=== PATIENT | female | born 1965 | race Caucasian/White ===

== ENCOUNTER 2018-05-20 16:04 | Outpatient (CLI) | payer OTHER, SELFPAY ==
[2018-05-20 17:36] LABS: TSH 2.97 uIU/mL (0.358-3.74)
== END 2018-05-20 16:24 ==
PROVIDERS: PCP Family Medicine; Visit Provider Family Medicine
DX: E03.9 Hypothyroidism, unspecified (principal)
CPT/HCPCS: 36415; 84443

== ENCOUNTER 2018-10-21 09:48 | Outpatient (CLI) | payer OTHER, SELFPAY ==
--- NOTE | 2018-10-21 09:39 | DI.RAD_ITS ---
SYMPTOM/DIAGNOSIS: RT KNEE PAIN RIGHT KNEE: Three views. No priors. Small periarticular osteophytes are seen in the medial and lateral femoral tibial joint space. The joint spaces are otherwise well maintained. The bones are intact and normally mineralized. The soft tissues are unremarkable. IMPRESSION: Mild degenerative changes of the right knee.
== END 2018-10-21 10:08 ==
PROVIDERS: PCP Family Medicine; Visit Provider Student in an Organized Health Care Education/Training Program
DX: M25.561 Pain in right knee (principal); M17.11 Unilateral primary osteoarthritis, right knee
CPT/HCPCS: 73562

== ENCOUNTER 2018-11-11 10:18 | Outpatient (CLI) | payer OTHER, SELFPAY ==
[2018-11-11 13:08] LABS: Cholesterol 212 mg/dL (50-200); HDL Cholesterol 69 mg/dL (40-60); LDL CHOLESTEROL 126 mg/dL (<100); TSH 3.19 uIU/mL (0.358-3.74); Triglyceride 96 mg/dL (30-150)
== END 2018-11-11 10:38 ==
PROVIDERS: PCP Family Medicine; Visit Provider Family Medicine
DX: E03.9 Hypothyroidism, unspecified (principal); Z13.220 Encounter for screening for lipoid disorders
CPT/HCPCS: 36415; 80061; 83721; 84443

== ENCOUNTER 2018-11-13 02:00 | Outpatient (CLI) | payer OTHER, SELFPAY ==
--- NOTE | 2018-11-13 08:48 | DI.RAD_ITS ---
SYMPTOM/DIAGNOSIS: FOOD GETTING STUCK AFTER SWALLOWING, DYSPHAGIA, R13.10 BARIUM SWALLOW: Fluoroscopy Time: 46 seconds A PA and lateral chest and soft tissue lateral neck are unremarkable. The patient swallowed barium without difficulty. The hira and hypopharynx are intact. The bolus of barium is projected normally from the pharynx into the esophagus. There is a small axial hiatus hernia beneath a non obstructing lower esophageal ring. Gastroesophageal reflux was not elicited at the time of this examination. There is no evidence of a stricture or mass. SUMMARY: A small axial hiatus hernia is noted beneath a non obstructing lower esophageal ring. The examination is otherwise unremarkable.
[2018-11-13] MEDS: Barium Sulfate 60% W/V 355 ML BTL PO ×2 (10:00)
== END 2018-11-13 02:20 ==
PROVIDERS: PCP Family Medicine; Visit Provider Family Medicine
DX: R13.10 Dysphagia, unspecified (principal); K44.9 Diaphragmatic hernia without obstruction or gangrene; K22.2 Esophageal obstruction
CPT/HCPCS: 74220

== ENCOUNTER 2018-11-26 00:52 | Outpatient (CLI) | payer OTHER, SELFPAY ==
--- NOTE | 2018-11-26 15:30 | DI.MAMMO_ITS ---
SYMPTOM/DIAGNOSIS: SCREENING, Z12.31 MAMMOGRAMS: Mammograms were interpreted according to the usual protocol including computer analysis with CAD system, tomosynthesis and C view imaging. The breasts are of moderate density with fairly symmetrical distribution of fibroglandular tissue. No dominant mass or clumped microcalcification is identified in either breast. The current examination is compared with previous examinations including 02/2016 and there has been no gross interval change in appearance in comparison with the previous studies. CONCLUSION: No specific evidence of malignancy at this time. Routine screening examinations are suggested at yearly intervals in this age group according to the ACS/ACR guidelines. Category 1. Breast density, Category B. MQSA ASSESSMENT OF FINDINGS: Negative. Category 1. Patient will receive a letter notifying them of these results. BI-RADS category B. There are scattered areas of fibroglandular density.
== END 2018-11-26 01:12 ==
PROVIDERS: PCP Family Medicine; Visit Provider Family Medicine
DX: Z12.31 Encounter for screening mammogram for malignant neoplasm of breast (principal)
CPT/HCPCS: 77063; 77067

== ENCOUNTER 2019-01-20 02:10 | Outpatient (CLI) | payer OTHER, SELFPAY ==
--- NOTE | 2019-01-20 16:03 | DI.MRI_ITS ---
SYMPTOM/DIAGNOSIS: RT KNEE PAIN, TENDERNESS OVER LAT JOINT LINE, BICEPS FEMORIS, S76.311D, STRAIN RIGHT KNEE MRI: Comparison is made with plain films dated 10/21/18. Fat suppressed T 2 axial, proton density and fat suppressed T 2 coronal and sagittal and proton density oblique sagittal sequences were performed. There is a moderate sized joint effusion. There is a small Davis's cyst. There is some fluid posterior to the posterior cruciate ligament between the posterior capsule which could represent synovial cyst or ganglion. The cruciate and collateral ligaments and extensor mechanism appear intact. There is abnormal linear signal in the body and posterior horn of the lateral meniscus. The medial meniscus appears intact. There is spurring from the femoral condyles and tibial plateaus, greater laterally. No focal cartilage defects are seen. IMPRESSION: Horizontal tear of the posterior horn and body of the lateral meniscus.
== END 2019-01-20 02:30 ==
PROVIDERS: PCP Family Medicine; Visit Provider Physician Assistant
DX: S76.311D Strain of muscle, fascia and tendon of the posterior muscle group at thigh level, right thigh, subsequent encounter (principal); M25.561 Pain in right knee; S83.281A Other tear of lateral meniscus, current injury, right knee, initial encounter
CPT/HCPCS: 73721

== ENCOUNTER 2019-06-03 08:47 | Outpatient (CLI) | payer OTHER, SELFPAY ==
--- NOTE | 2019-06-03 07:56 | HPE_ITS ---
Assessment and Plan Assessment and plan (1) Tear of lateral meniscus of right knee: Status: Acute Assessment and plan: Plan: Educated patient on surgery covering surgical technique, recovery process, benefits and risks including but not limited to ris k of infection, blood clot, damage to soft tissue/blood vessels/nerves in detail. After discussion patient gives verbal understanding of risks and elects to proceed with scheduling surgery. Patient had opportunity to have questions answered to their satisfaction. They will contact office if issues arise. Patient will continue to be scheduled for right knee arthroscopic surgery with partial lateral meniscectomy with Dr. Rodgers. Qualifiers: Encounter type: subsequent encounter Meniscus tear of knee type: complex Tear current or old: current Qualified Code(s): S83.271D - Complex tear of lateral meniscus, current injury, right knee, subsequent encounter History of Present Illness Narrative: Ms. Morton is a 54-year-old female who presents to clinic for scheduled preoperative visit for right knee arthroscopy with partial lateral menisectomy. Patient has been seen in clinic numerous times for right lateral based lower extremity pain since it began last August. Describes pain on the lateral aspect of her right distal thigh that extends to the posterior aspect of her knee along the lateral aspect of the calf extending to the dorsum of the foot. She describes pain as constant but aggravated with all weightbearing activity, ascending/descending hills and driving. She has tried physical therapy, Advil as well as an intraarticular injection but continues to have pain. Based on her symptoms she underwent an MRI which revealed a lateral meniscus tear. Reports a numbing pain sensation along the lateral aspect of her knee down to the foot recently when having to hold the car brake down for an extended amount of time. States that the symptoms of radiated pain/numbness also fully resolves for a few days with her intraarticular injection. States the knee also swells significantly by the end of the day. Denies any recent injuries or trauma. Due to her continued symptoms she was offered surgical intervention and elected to proceed. Pertinent Surgical Information Denies past medical history of: Hypertension, stroke, cardiac issues, angina, asthma, COPD, sleep apnea, renal issues, liver issues, hepatitis, gastrointestinal ulcers, hyperlipidemia, bleeding disorders, seizures, migraines, diabetes, autoimmune disorders Reports a little difficulty breathing when she was waking up from anesthesia following her first hysterectomy surgery at [facility] in 2008. Denies any additional issues with surgeries following at [facility] and at [facility]. Denies prior complications from surgery. Review of Systems Constitutional Constitutional: Denies fever(s), Denies frequent falls and Denies headache(s) Eyes Eyes: Denies change in vision ENT Ears, Nose, Mouth, and Throat: Denies dizziness, Denies ear discharge, Denies headache(s), Denies epistaxis, Denies nasal discharge and Denies sore throat Cardiovascular Cardiovascular: Denies chest pain, Denies rapid heart rate, Denies irregular heart rhythm, Denies palpitations, Denies dyspnea, Denies dyspnea on exertion, Denies orthopnea, Denies paroxysmal nocturnal dyspnea and Denies slow heart rate Respiratory Respiratory: Denies cough, Denies dyspnea, Denies dyspnea on exertion and Denies wheezing Gastrointestinal Gastrointestinal: Denies abdominal pain, Denies melena, Denies hematochezia, Denies constipation, Denies diarrhea, Denies nausea and Denies vomiting Genitourinary Genitourinary: Denies hematuria, Denies dysuria and Denies urinary urgency Musculoskeletal Musculoskeletal: Reports as per HPI, Reports numbness and Denies tingling Neurologic Neurologic: Denies dizziness, Denies frequent falls, Denies headache(s), Reports numbness and Denies tingling Psychiatric Psychiatric: Reports anxiety and Reports depression Endocrine Endocrine: Denies palpitations Allergic/Immunologic Allergic/Immunologic: Denies wheezing [facility] Medical History (Updated 06/03/19 @ 14:14 by Eda Dukes) Anxiety Depression Family history of anesthesia complication (Acute) Pt states mother had to be brought back GERD (gastroesophageal reflux disease) (Chronic) History of anesthesia problem (Acute) Pt states difficulty breathing, N/V Hypothyroid Tendinitis involving left hip abductors (Chronic 02/14/16) Trochanteric bursitis of both hips (Chronic 02/14/16) Surgical History Cholecystectomy (~07/1998) Colonoscopy - IV Sedation (04/28/16) History of pubovaginal sling (Acute) [facility] Hysterectomy, Laproscopic prolapsed uterus Family History Mother Essential hypertension Hyperlipidemia Hyperthyroidism Pacemaker Father Inclusion body myositis Essential hypertension Hyperlipidemia Machuca's syndrome Brother No problems noted. Grandfather , accidental No problems noted. Grandfather Essential hypertension Heart disease Hyperlipidemia Stroke Grandmother , accidental No problems noted. 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 - [employer] Do you feel safe at home: Yes Do you feel safe in your relationship?: Yes Meds Home Medications and Allergies Home Medications Medication Instructions Recorded Confirmed Type calcium carbonate-vitamin D3 1 ea PO BID 11/27/12 06/03/19 History [Caltrate with Vitamin D3] venlafaxine 37.5 mg 37.5 mg PO DAILY #90 tab-cap 06/19/18 06/03/19 Rx capsule,extended release 24 hr levothyroxine 112 mcg tablet 112 mcg PO DAILY #90 tab-cap 08/06/18 06/03/19 Rx ranitidine HCl 150 mg tablet 150 mg PO DAILY PRN 11/11/18 06/03/19 History nystatin 100,000 unit/gram topical 1 applic TP BID PRN #30 gm 02/19/19 06/03/19 Rx cream ibuprofen [Advil] 400 mg PO DAILY 06/03/19 06/03/19 History Allergies Allergy/AdvReac Type Severity Reaction Status Date / Time No Known Allergies Allergy Verified 06/03/19 09:07 Exam Const General: cooperative and no acute distress [facility] Head: normal to inspection, normocephalic and atraumatic Ears: external ears normal General nose exam: external nose normal and no nasal discharge Face and sinus: face symmetric Mouth: oral mucosae normal, lip normal, tongue normal and moist mucous membranes Teeth and gingiva: dentition normal Throat: posterior oropharynx normal Eyes General: appearance normal, both eyes and all related structures Pupils: PERRL EOM: EOM intact bilaterally Neck Neck: trachea midline Carotids: normal carotid upstroke Lymphatic: no lymphadenopathy noted Resp Effort & Inspection: normal respiratory effort and able to speak in complete sentences Auscultation: clear to auscultation bilaterally, no rales, no rhonchi and no wheezes Cardio Heart Sounds: S1 normal, S2 normal and no murmurs Pulses: radial pulses present bilaterally GI Palpation: soft, no hepatosplenomegaly and nontender Auscultation: normal bowel sounds Skin General skin exam: no rashes or lesions noted
== END 2019-06-03 09:07 ==
PROVIDERS: PCP Family Medicine; Visit Provider Student in an Organized Health Care Education/Training Program
DX: S83.281D Other tear of lateral meniscus, current injury, right knee, subsequent encounter (principal); Z01.818 Encounter for other preprocedural examination
CPT/HCPCS: NC

== ENCOUNTER 2019-06-10 06:01 | Day surgery (SDC) | payer OTHER, SELFPAY ==
[2019-06-10] VITALS (7 sets, daily range): BP systolic 114–140; BP diastolic 67–96; PULSE 49–63; RESP 16–19; TEMP 36.1–36.7; O2SAT 97–100
[2019-06-10] MEDS: Lactated Ringers 1,000 ML 80 ML IV (06:43)
--- NOTE | 2019-06-10 07:09 | W.PM.DSUDISC ---
Discharge Plan Disposition Patient Disposition: HOME Condition: Good Discharge Details Reason For Visit: R lateral meniscus tear Attending Provider: Nick Rodgers Primary Care Provider: Trish Stevens Home Meds and New Rx's Prescriptions: New acetaminophen 500 mg tablet 1,000 mg PO Q8H PRN (Reason: pain) Qty: 60 RF: 3 ibuprofen 600 mg tablet 600 mg PO TID PRNQty: 90 RF: 3 oxycodone 5 mg tablet 5 mg PO Q6H PRN PRNQty: 10 RF: 0 Continued ranitidine HCl [Heartburn Relief (ranitidine)] 150 mg tablet 150 mg PO DAILY PRNRF: 0 nystatin 100,000 unit/gram cream 1 applic TP BID PRN (Reason: skin rash) Qty: 30 RF: 3 calcium carbonate-vitamin D3 [Caltrate with Vitamin D3] 1 EACH tablet 1 ea PO BID RF: 0 venlafaxine 37.5 mg capsule,extended release 24hr 37.5 mg PO DAILY Qty: 90 RF: 4 levothyroxine 112 mcg tablet 112 mcg PO DAILY Qty: 90 RF: 3 Discontinued ibuprofen [Advil] 200 mg Tablet 400 mg PO DAILY RF: 0 Discharge Instructions Stand Alone Forms: [facility] Knee Arthroscopy Referrals: Nick Rodgers MD [ [facility] STAFF PHYSICIAN] - Equipment/Supplies: Partial Weight Bearing Crutches Activity:: Elevate Remove Dressings/Wound Care:: 72 hours Shower/Bathe:: 72 hours Diet:: As Tolerated Discharge Orders Discharge Orders: Discharge Order (Routine); Ordered 06/10/19 Ordered By: Nick Rodgers DS: Diagnosis Discharge Diagnosis (1) Tear of lateral meniscus of right knee: Status: Acute
[2019-06-10] MEDS: ceFAZolin 2 GM/50 ML BAG IVPB (07:23)
[2019-06-10] MEDS: Bupivacaine 0.5% Pres-Free 30 ML VIAL (07:45)
[2019-06-10] MEDS: EPINEPHrine 1 MG/ML AMP pres-free (07:53)
[2019-06-10] MEDS: fentaNYL 100 MCG/2 ML VIAL IVP ×2 (08:30→08:45)
--- NOTE | 2019-06-10 08:48 | ROE_ITS ---
Date of service: 06/10/19 Time of Service: 08:48 Operative Note Operative Note DATE OF PROCEDURE: 06/10/19 PRE-OP DIAGNOSIS: Left Knee Lateral Meniscus Tear POST-OP DIAGNOSIS: other (Left Knee Lateral Meniscus Tear involving posterior root, lateral chondromalacia) PROCEDURE: Left knee arthroscopic partial lateral meniscectomy SURGEON: Nick Rodgers ANESTHESIA: GETA ESTIMATED BLOOD LOSS: 0 PATHOLOGY: none sent COMPLICATIONS: None Patient was transported to: PACU Patient's condition: stable Indications: I have seen Erum in clinic for symptoms of a meniscus tear. This was confirmed based on MRI and exam findings. Nonoperative measures were exhausted but disability and pain persisted. I discussed knee arthroscopy with meniscal intervention with the patient. I reviewed the risks of the procedure to include, but not limited to, bleeding, infection, pain, stiffness, damage to nerves or vessels, recurrence, blood clot. Despite these risks, the patient el ected to proceed. 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 The consent was reviewed with the patient and signed. The history and physical was updated. All questions were answered. Erum was taken back to the operating room. The patient was placed into the supine position on the operating room table. A nonsterile tourniquet was placed high onto the leg but not used. All bony prominences were well padded. Prophylactic antibiotics in the form of Cefazolin were administered. The right leg was then prepped with Chloraprep and draped in a standard fashion with stockinette and extremity drape. A timeout to confirm correct identity, side and site, procedure, allergies, anesthesia, and medical concerns was performed. A standard lateral portal was made at the lateral border of the patella tendon in line with the inferior pole of the patella, soft spot. The skin and deep tissue was incised sharply and the blunt trochar was inserted atraumatically. A diagnostic arthroscopy was performed and the findings are listed above. The suprapatellar pouch had some moderate inflammatory change. The patellofemoral articulation showed mild fraying with good tracking. The lateral gutter had no loose bodies and the medial gutter had no loose bodies. The knee was brought into some valgus stress in extension to open the medial compartment. A medial portal was made, localized by a spinal needle. The portal was created with an #11 blade through skin and capsule under direct visualization avoiding any meniscal injury. A probe was then inserted into the medial compartment. The medial compartment was fully inspected. The chondral surface of the tibia showed no significant chondromalacia and the surface of the femur showed no significant chondromalacia. The medial meniscus had no meniscal tear. The notch was then inspected which showed an intact ACL and an intact PCL. The leg was then brought into a figure of 4 position. The lateral compartment was fully inspected with the arthroscope and a probe. The chondral surface of the lateral femur showed global Grade III chondromalacia with areas of focal Grade IV changes. The chondral surface of the lateral tibia showed Grade II chondromalacia. The lateral meniscus had a complex tear with both radial and horizontal components. The tear was primarily involving the posterior body and extending into the root. There was a portion of the peripheral meniscus (~25%) still continguous between the body and root. Given the arthritis of the lateral compartment and her age, I elected to proceed with lateral partial menisectomy as per our pre-operative discussions. After evaluation, the meniscus was debrided down to a stable base using a series of biters and arthroscopic sierra. It was probed afterwards to confirm that the tear had been removed and the meniscus was stable. The peripheral remnant of root connection was intact. There were no free cartilage flaps and therefore no chondroplasty was performed. The arthroscope was brought back into the suprapatellar pouch and the leg was in full extension. The knee was thoroughly irrigated with the arthroscopic fluid on high flow and pressure. Inflow was stopped and excess fluid was removed. The wounds were closed with 4-0 Nylon. They were dressed with Xeroform, 4x4 gauze, ABD pad, Kerlix and an MANASA wrap. A cryo-cuff was applied. The patient tolerated the procedure well and was returned to the Same Day Surgery area in a stable condition suffering no known complication.
[2019-06-10] MEDS: oxyCODONE 5 MG TAB PO (09:50)
== END 2019-06-10 11:20 | disposition home or self-care (01) ==
PROVIDERS: PCP Family Medicine; Visit Provider Student in an Organized Health Care Education/Training Program
PROC: (CPT 29870; principal; 2019-06-10 07:30)
DX: S83.271A Complex tear of lateral meniscus, current injury, right knee, initial encounter (principal); M94.262 Chondromalacia, left knee; X58.XXXA Exposure to other specified factors, initial encounter; M65.9 Synovitis and tenosynovitis, unspecified; M17.12 Unilateral primary osteoarthritis, left knee; K21.9 Gastro-esophageal reflux disease without esophagitis
CPT/HCPCS: 29881; J0131; J0171; J0690; J1100; J1885; J2250; J2405; J3010

== ENCOUNTER 2020-02-09 02:16 | Outpatient (CLI) | payer OTHER, SELFPAY ==
--- NOTE | 2020-02-09 15:00 | DI.MAMMO_ITS ---
EXAM: MG MAMMO SCREENING CLINICAL HISTORY: screening TECHNIQUE: Bilateral full field digital CC and MLO mammographic images were obtained with 3D tomosyn thesis and utilizing computer aided detection (CAD). COMPARISON: Available for comparison. FINDINGS: Masses/Architectural Distortion: None seen. Microcalcifications: No suspicious pleomorphic-type are seen. Skin Thickening/Nipple Retraction: None. IMPRESSION: 1. No significant interval change with no specific features of malignancy noted. 2. Unless there is more urgent need, screening mammography is recommended, as per [place] [employer] guidelines. BI-RADS Category 1 - Negative Breast Density - Category A - Almost entirely fatty A negative radiographic report should not delay biopsy if a dominant or clinically suspicious mass is present. Up to ten percent of cancers are not identified on mammography. A negative report may reinforce clinical impression. Adenosis and dense breasts may obscure an underlying neoplasm. False positive reports average 6 to 10%. Patient will receive a letter notifying them of these results.
== END 2020-02-09 02:36 ==
PROVIDERS: PCP Family Medicine; Visit Provider Family Medicine
DX: Z12.31 Encounter for screening mammogram for malignant neoplasm of breast (principal)
CPT/HCPCS: 77063; 77067

== ENCOUNTER 2020-02-27 01:34 | Outpatient (CLI) | payer OTHER, SELFPAY ==
[2020-02-27 16:09] LABS: ALT 24 U/L (14-59); AST 14 U/L (15-37); Albumin 3.7 g/dL (3.4-5.0); Alkaline Phosphatase 70 U/L (46-116); Anion Gap 4.7 mmol/L (3-11); BUN 10 mg/dL (7-18); Bilirubin, Total 0.4 mg/dL (0.2-1.0); CO2 26.3 mmol/L (21.0-32.0); CREATININE 0.83 mg/dL (0.55-1.02); Chloride 102 mmol/L (98-107); Glucose 99 mg/dL (74-106); Potassium 4.2 mmol/L (3.5-5.1); Sodium 133 mmol/L (136-145); TSH 1.14 uIU/mL (0.36-3.74); Total Protein 7.3 g/dL (6.4-8.2)
== END 2020-02-27 01:54 ==
PROVIDERS: PCP Family Medicine; Visit Provider Family Medicine
DX: E03.9 Hypothyroidism, unspecified (principal); I10 Essential (primary) hypertension
CPT/HCPCS: 36415; 80053; 84443

== ENCOUNTER 2021-05-03 10:30 | Outpatient (CLI) | payer OTHER, SELFPAY ==
[2021-05-03 17:02] LABS: Anion Gap 4.2 mmol/L (3-11); BUN 14 mg/dL (7-18); CO2 30.8 mmol/L (21.0-32.0); CREATININE 0.7 mg/dL (0.55-1.02); Calcium 8.9 mg/dL (8.5-10.1); Chloride 103 mmol/L (98-107); Glucose 85 mg/dL (74-106); Potassium 4.1 mmol/L (3.5-5.1); Sodium 138 mmol/L (136-145); TSH 1.48 uIU/mL (0.36-3.74)
== END 2021-05-03 10:31 | disposition home or self-care (01) ==
LOC: LBO 10:32
PROVIDERS: PCP Family Medicine; Visit Provider Family Medicine
DX: I10 Essential (primary) hypertension (principal); E03.9 Hypothyroidism, unspecified
CPT/HCPCS: 36415; 80048; 84443

== ENCOUNTER 2021-05-30 01:52 | Outpatient (CLI) | payer OTHER, SELFPAY ==
--- NOTE | 2021-05-30 08:15 | DI.MAMMO_ITS ---
Exam(s) MAMMO SCREENING EXAM: MAMMO SCREENING CLINICAL HISTORY: screening,z12.39. TECHNIQUE: Bilateral full field digital CC and MLO mammographic images were obtained with 3D tomosyn thesis and utilizing computer aided detection (CAD). COMPARISON: Prior mammograms dating back to 2011, the most recent being February 2020. FINDINGS: There are no CAD designations There are no new spiculated masses nor malignant appearing microcalcification groups. There is no significant architectural distortion nor skin thickening-retraction. IMPRESSION: No radiographic evidence of malignancy. BI-RADS Category 1 - Negative Breast Density - Category A - Almost entirely fatty Breast density Category C or D implies that the patient has dense breast tissue. Dense breast tissue can make it harder to find cancer on a mammogram. Dense breast tissue is also associated with an incr eased risk of breast cancer. This information about the result of the mammogram report was provided to the patient to raise their awareness. Use this report when you speak with the patient about their risks for breast cancer, which includes their family history. At that time, you may recommend additional screening tests (Ultrasoun d or MRI) as these tests may add significant information. A negative radiographic report should not delay biopsy if a dominant or clinically suspicious mass is present. Up to ten percent of cancers are not identified on mammography. A negative report may reinforce clinical impression. Adenosis and dense breasts may obscure an underlying neoplasm. False positive reports average 6 to 10%. Patient will receive a letter notifying them of these results.
== END 2021-05-30 02:12 ==
PROVIDERS: PCP Family Medicine; Visit Provider Family Medicine
DX: Z12.31 Encounter for screening mammogram for malignant neoplasm of breast (principal)
CPT/HCPCS: 77063; 77067

== ENCOUNTER 2022-05-17 01:52 | Outpatient (CLI) | payer OTHER, SELFPAY ==
[2022-05-17 16:25] LABS: TSH (W/Ref FT4) 7.25 uIU/mL (0.36-3.74)
[2022-05-17 16:46] LABS: FREE T4 1.01 ng/dL (0.76-1.46)
== END 2022-05-17 01:53 | disposition home or self-care (01) ==
LOC: LBO 01:52
PROVIDERS: PCP Nurse Practitioner Family; Visit Provider Nurse Practitioner Family
DX: E03.9 Hypothyroidism, unspecified (principal)
CPT/HCPCS: 36415; 84439; 84443

== ENCOUNTER 2022-07-19 02:50 | Outpatient (CLI) | payer OTHER, SELFPAY ==
[2022-07-19 15:13] LABS: Abs Immature Grans 0.02 10^3/uL (0.0-0.06); Absolute Basophil Count 0.04 10^3/uL (0.0-0.2); Absolute Eosinophil Count 0.16 10^3/uL (0.0-0.7); Absolute Lymphocyte Count 2.31 10^3/uL (1.2-3.4); Absolute Monocyte Count 0.67 10^3/uL (0.1-0.8); Absolute Neutrophil Count 4.06 10^3/uL (1.2-6.7); Basophils % 0.6; ESR 23 mm/hr (0-30); Eosinophils % 2.2; HCT 38.9 % (36.0-46.0); HGB 12.8 g/dL (11.2-15.7); Immature Grans % 0.3; Lymphocytes % 31.8; MCH 28.5 pg (27.0-33.0); MCHC 32.9 % (32.0-36.0); MCV 87 fL (80-95); MPV 9.8 fL (8.0-11.0); Monocytes % 9.2; Neutrophils % 55.9; Platelet Count 328 10^3/uL (130-400); RBC 4.49 10^6/uL (3.93-5.22); RDW 13.9 % (11.7-14.6); RDW-SD 44.9 fL; WBC 7.26 10^3/uL (4.4-10.8)
[2022-07-19 15:53] LABS: ALT 26 U/L (14-59); AST 19 U/L (15-37); Albumin 3.5 g/dL (3.4-5.0); Alkaline Phosphatase 67 U/L (46-116); Anion Gap 11.1 mmol/L (3-11); BUN 17 mg/dL (7-18); Bilirubin, Total 0.3 mg/dL (0.2-1.0); C-Reactive Protein 0.39 mg/dL (0.0-0.3); CO2 25.9 mmol/L (21.0-32.0); CREATININE 1.2 mg/dL (0.55-1.02); Calcium 8.4 mg/dL (8.5-10.1); Chloride 104 mmol/L (98-107); Glucose 96 mg/dL (74-106); Potassium 3.7 mmol/L (3.5-5.1); Sodium 141 mmol/L (136-145); Total Protein 7.6 g/dL (6.4-8.2)
[2022-07-21 07:52] LABS: Cyclic Citrullinated Peptide <2.5 U/mL (<5.0)
[2022-07-21 14:03] LABS: ANA Interpretation Positive (Negative); ANA Titer Pattern 1:320 Speckled
== END 2022-07-19 02:51 | disposition home or self-care (01) ==
LOC: LBO 02:50
PROVIDERS: PCP Nurse Practitioner Family; Visit Provider Nurse Practitioner Family
DX: M25.59 Pain in other specified joint (principal); I10 Essential (primary) hypertension; E03.9 Hypothyroidism, unspecified; F41.8 Other specified anxiety disorders; R53.83 Other fatigue
CPT/HCPCS: 36415; 80053; 85652; 86200; 85025; 86038; 86140

== ENCOUNTER → 2022-08-08 02:23 | Outpatient (CLI) | payer OTHER, SELFPAY ==
--- NOTE | 2022-08-08 07:45 | DI.MAMMO_ITS ---
Exam(s) MAMMO SCREENING EXAM: MAMMO SCREENING CLINICAL HISTORY: screening TECHNIQUE: Bilateral full field digital CC and MLO mammographic images were obtained with 3D tomosyn thesis and utilizing computer aided detection (CAD). COMPARISON: Available for comparison. FINDINGS: Masses/Architectural Distortion: None seen. Microcalcifications: No suspicious pleomorphic-type are seen. Skin Thickening/Nipple Retraction: None. IMPRESSION: 1. No significant interval change with no specific features of malignancy noted. 2. Unless there is more urgent need, screening mammography is recommended, as per [employer] guidelines. BI-RADS Category 1 - Negative Breast Density - Category A - Almost entirely fatty Breast density category C or D implies that the patient has dense breast tissue. Dense breast tissue is very common and is not abnormal but dense breast tissue can make it harder to find cancer on a ma mmogram. Also, dense breast tissue may increase their breast cancer risk. This information about the result of the mammogram report was provided to the patient to raise their awareness. Use this report when you speak with the patient about their risks for breast cancer, which includes their family hist ory. At that time, you may recommend for more screening tests (Ultrasound or MRI) as they might be us eful based on their risk. A negative radiographic report should not delay biopsy if a dominant or clinically suspicious mass is present. Up to ten percent of cancers are not identified on mammography. A negative report may reinforce clinical impression. Adenosis and dense breasts may obscure an underlying neoplasm. False positive reports average 6 to 10%. Patient will receive a letter notifying them of these results.
== END ==
PROVIDERS: PCP Nurse Practitioner Family; Visit Provider Nurse Practitioner Family
DX: Z12.31 Encounter for screening mammogram for malignant neoplasm of breast (principal)
CPT/HCPCS: 77063; 77067

== ENCOUNTER 2023-02-12 04:33 | Outpatient (CLI) | payer OTHER, SELFPAY ==
[2023-02-12 15:38] LABS: CREATININE 0.7 mg/dL (0.55-1.02); Estimated GFR 100.19 (mL/min/1.73m2); TSH (W/Ref FT4) 7.25 uIU/mL (0.36-3.74)
[2023-02-12 16:14] LABS: FREE T4 1.02 ng/dL (0.76-1.46)
== END 2023-02-12 04:34 | disposition home or self-care (01) ==
LOC: LBO 04:33
PROVIDERS: PCP Nurse Practitioner Family; Visit Provider Nurse Practitioner Family
DX: I10 Essential (primary) hypertension (principal); E03.9 Hypothyroidism, unspecified
CPT/HCPCS: 36415; 82565; 84132; 84439; 84443

== ENCOUNTER → 2023-08-22 01:58 | Outpatient (CLI) | payer OTHER, SELFPAY ==
--- NOTE | 2023-08-22 08:15 | DI.MAMMO_ITS ---
Exam(s) MAMMO SCREENING EXAM: MAMMO SCREENING CLINICAL HISTORY: screening,z12.39. TECHNIQUE: Bilateral full field digital CC and MLO mammographic images were obtained with 3D tomosyn thesis and utilizing computer aided detection (CAD). COMPARISON: Prior mammograms were reviewed. FINDINGS: There has been no significant change in the appearance and distribution of the fibroglandular tissue which is again noted be predominately fatty.. There are no CAD designations There are no new spiculated masses nor malignant appearing microcalcification groups. There is no significant architectural distortion nor skin thickening-retraction. IMPRESSION: No radiographic evidence of malignancy. BI-RADS Category 1 - Negative Breast Density - Category A - Almost entirely fatty Breast density Category C or D implies that the patient has dense breast tissue. Dense breast tissue can make it harder to find cancer on a mammogram. Dense breast tissue is also associated with an incr eased risk of breast cancer. This information about the result of the mammogram report was provided to the patient to raise their awareness. Use this report when you speak with the patient about their risks for breast cancer, which includes their family history. At that time, you may recommend additional screening tests (Ultrasoun d or MRI) as these tests may add significant information. A negative radiographic report should not delay biopsy if a dominant or clinically suspicious mass is present. Up to ten percent of cancers are not identified on mammography. A negative report may reinforce clinical impression. Adenosis and dense breasts may obscure an underlying neoplasm. False positive reports average 6 to 10%. Patient will receive a letter notifying them of these results.
== END ==
PROVIDERS: PCP Nurse Practitioner Family; Visit Provider Nurse Practitioner Family
DX: Z12.31 Encounter for screening mammogram for malignant neoplasm of breast (principal)
CPT/HCPCS: 77063; 77067

== ENCOUNTER 2023-09-04 19:43 | Outpatient (CLI) | payer OTHER, SELFPAY ==
[2023-09-04 14:27] LABS: Abs Immature Grans 0.01 10^3/uL (0.0-0.06); Absolute Basophil Count 0.04 10^3/uL (0.0-0.2); Absolute Eosinophil Count 0.16 10^3/uL (0.0-0.7); Absolute Monocyte Count 0.77 10^3/uL (0.1-0.8); Basophils % 0.6; Eosinophils % 2.5; HCT 40.1 % (36.0-46.0); Immature Grans % 0.2; Lymphocytes % 32.4; MCH 28.1 pg (27.0-33.0); MCHC 32.4 % (32.0-36.0); MCV 87 fL (80-95); MPV 9.7 fL (8.0-11.0); Monocytes % 11.9; Neutrophils % 52.4; Platelet Count 343 10^3/uL (130-400); RBC 4.63 10^6/uL (3.93-5.22); RDW 14.1 % (11.7-14.6); RDW-SD 44.6 fL; WBC 6.48 10^3/uL (4.4-10.8)
[2023-09-04 15:54] LABS: TSH (W/Ref FT4) 2.64 uIU/mL (0.36-3.74)
== END 2023-09-04 19:44 | disposition home or self-care (01) ==
LOC: LBO 19:45
PROVIDERS: PCP Nurse Practitioner Family; Visit Provider Surgery
DX: I10 Essential (primary) hypertension (principal); K21.9 Gastro-esophageal reflux disease without esophagitis; R07.89 Other chest pain; R11.0 Nausea; Z82.49 Family history of ischemic heart disease and other diseases of the circulatory system; Z84.89 Family history of other specified conditions
CPT/HCPCS: 36415; 84443; 85025

== ENCOUNTER 2023-09-05 10:40 | Outpatient (REF) | payer OTHER, SELFPAY ==
[2023-09-07 15:06] LABS: Pancreatic Elastase, F >500 mcg/g
[2023-09-07 22:19] LABS: Calprotectin 62.3 mcg/g
== END 2023-09-05 10:41 | disposition home or self-care (01) ==
LOC: LBN 10:40
PROVIDERS: PCP Nurse Practitioner Family; Visit Provider Surgery
DX: K21.9 Gastro-esophageal reflux disease without esophagitis (principal); K52.9 Noninfective gastroenteritis and colitis, unspecified; R11.0 Nausea; I10 Essential (primary) hypertension; R07.89 Other chest pain
CPT/HCPCS: 82656; 83993

== ENCOUNTER → 2023-09-10 01:02 | Outpatient (CLI) | payer OTHER, SELFPAY ==
--- NOTE | 2023-09-10 06:45 | ETT_ITS ---
APPROVED REPORT Exam: Exercise Treadmill Patient Location: Out-Patient Room/Bed: Stress Nurse: Shanika Becerril RN Ordering Provider:NEO TARA, Contact Number: [phone] BMI: 30.81 Baseline Rhythm: Sinus Bradycardia Indications: family h/o heart disease, left sided chest pain, HTN Medical History Medical History: Depression, anxiety, hypothyroid, left sided chest wall pain, HTN, GERD Cardiac Medications: Calcium carbonate w/ Vitamin D, Escitalopram, Levothyroxine, lisinopril, pantopr azole Allergies: NKA Cardiac Risk Factors: Family Hx, HTN Previous Cardiac Procedures: None Pretest Chest Pain Characteristics: None Exercise History: Indeterminate Physical Disabilities: None Lung Sounds: Clear to auscultation Heart Sounds: Bradycardia Stress Test Details Test: Exercise stress testing was performed using a Leandro protocol. Rest Stress HR Resting HR Supine: 56 bpm Max Heart Rate (APMHR): 162 bpm Resting HR Standin bpm Target HR (85% APMHR): 138 bpm Max HR Achieved: 158 bpm % of APMHR: 98 Recovery HR: 63 bpm HR response to stress: Normal HR response to stress BP Resting BP Supine: 120/74 mmHg Resting BP Standin/82 mmHg Max BP: 120/72 mmHg Recovery BP: 118/72 mmHg BP response to stress: Normal blood pressure response to stress. Comment: unable to get BPs during exercise r/t inability to auscultate ECG Resting ECG: Sinus Bradycardia Ectopy: none Stress ECG: Sinus Tachycardia ST Change: Horizontal ST depression, Upsloping ST depression Lead(s): II Stage: 2-[address] Deviation: 2 mm Arrhythmia: None Comment: some upsloping and downsloping ST depression in lead II in Stage 2, 3 and begining of recove ry Recovery ECG: Sinus Rhythm Recovery ST Change: No significant ST segment changes noted Recovery Arrhythmia: VPC Comment: rare PVCs Clinical Reason for Termination: Fatigue Stress Symptoms: None Exercise duration: 7 min47 sec Highest Stage Reached: Stage 4: 4.2 mph at 16% grade. Exercise capacity: 9.82 METs Functional Capacity: Average Capacity Angina Score: None [place] Treadmill Score: -3.0 Rate Pressure Product: [id number] Stress ECG Conclusion 1. Normal cliniocal,ECG and BP responses. 2. Negative for inducible ischemia. [place] Treadmill Score is -3.0 which is Moderate risk. Stress Test Summary STAGE Time (mins) Speed (mph) Grade (%) HR BP SpO2 SYMPTOMS METS Supine 56 120/74 97 Standing 65 102/82 97 1 3 1.7 10 113 96 4.5 2 6 2.5 12 135 96 7 3 9 3.4 14 140 97 10 1 min recovery 156 120/72 97 3 min recovery 79 118/72 96 6 min recovery 63 110/72 unable to get BPs during exercise r/t inability to auscultate
== END ==
PROVIDERS: PCP Nurse Practitioner Family; Visit Provider Surgery
DX: R07.89 Other chest pain (principal); Z82.49 Family history of ischemic heart disease and other diseases of the circulatory system
CPT/HCPCS: 93017

== ENCOUNTER 2023-10-04 06:46 | Day surgery (SDC) | payer OTHER, SELFPAY ==
--- NOTE | 2023-10-03 17:05 | W.PM.DSUDISC ---
Date of service: 10/04/23 Time of Service: 09:01 Discharge Plan Disposition Patient Disposition: Home Condition: Good Discharge Details Reason For Visit: EGD and colonoscopy Attending Provider: Michael Pyle Primary Care Provider: Mak Sepulveda Home Meds and New Rx's Prescriptions: Continued escitalopram oxalate 20 mg tablet 20 mg PO DAILY Qty: 90 4RF lisinopril 10 mg tablet 10 mg PO DAILY Qty: 90 4RF nystatin 100,000 unit/gram cream 1 applic TP BID PRN (Reason: skin rash) Qty: 30 3RF Pepto-Bismol Ultra 525 mg tablet 525 mg PO Q30-60M PRN Rx Instructions: do not exceed 8 doses in a 24 hour period calcium carbonate [Tums] 300 mg (750 mg) tablet,chewable 300 mg PO BID PRN calcium carbonate-vitamin D3 [Caltrate with Vitamin D3] 1 EACH tablet 1 ea PO BID levothyroxine 112 mcg tablet 112 mcg PO DAILY Qty: 90 3RF Rx Instructions: take one tablet daily esomeprazole magnesium 20 mg capsule,delayed release(DR/EC) 20 mg PO DAILY Discontinued polyethylene glycol 3350 17 gram/dose powder 238 g PO ONCE Qty: 238 0RF Rx Instructions: take per colonoscopy instructions bisacodyl [Dulcolax (bisacodyl)] 5 mg tablet,delayed release (DR/EC) 5 mg PO ONCE Qty: 4 0RF Rx Instructions: take per colonoscopy instructions Discharge Instructions Instructions: Diverticulosis (GEN), GERD (Gastroesophageal Reflux Disease) (GEN), Colorectal Polyps (GEN), Diverticulosis Diet (GEN) Additional Instructions: Erum, we were able to complete your upper and lower endoscopies today without any issue. On your upper endoscopy, I do see some mild signs of gastroesophageal reflux disease. Otherwise, this portion of the test appeared normal. I did do biopsies of your duodenum, stomach, and GE junction to see if there is anything that needs to be treated that is not evident on visual inspection. Your colonoscopy also went very smoothly. You do have diverticulosis. These are weak spots that occur in the muscular portion of the colon wall. They can become infected and inflamed. They can also bleed from time to time. I do not see any evidence of active problems at this time. I also found a small polyp on the colonoscopy that I removed. The rest of the colon all appeared normal all the way through the terminal ileum, which is the last part of the small intestine that connects to the large intestine. Similar to your upper endoscopy, I did biopsies of the terminal ileum, and all along the length of the large intestine to see if there is anything there that might explain your diarrhea. The office will be in touch when all of these results are available. In the meantime, it would be very reasonable to increase your dietary fiber. This will help with the diverticulosis, and may help with the diarrhea as well. I typically recommend that patients eat about 30 g of dietary fiber every day. This level can be quite hard to obtain on a regular diet. Most patients need to supplement her diet with something like Metamucil or FiberCon. Any of those products can be obtained [id number]. Just check the concentration and the dosing requirements to make sure that you are not getting close to that 30 g/day virgilio. 1. If tolerated, consume a soft, low fiber diet for 1-2 days. 2[address] Do not drive, drink alcohol, operate machinery, make critical decisions, or do activities that require coordination or balance for 24 hours. 3. Because air was put into your colon during the procedure, expelling air from your rectum (passing gas or farting) is normal. 4. You may not have a bowel movement for 1-3 days because of the colonoscopy prep. This is normal. 5. You may experience a sore throat for 24 to 48 hours. You may use throat lozenges or gargle with warm salt water to relieve the discomfort. 6. Because air was put into your stomach during the procedure, you may experience some belching. 7. Go directly to the emergency room if you notice any of the following: Develop chills (warm to touch), or if you have a thermometer and your temperature is above 101 Difficulty breathing or difficultly swallowing Persistent vomiting Severe abdominal pain, other than gas cramps Severe chest pain Black, tarry stools Any bleeding ? exceeding one tablespoon 8. Call your physician if the site where your intravenous was started becomes red, swollen, painful, and warm to touch. 9. Your physician has reviewed your pre-procedure medications. Please continue to take those medications as previously ordered. You will be given specific information/education regarding any changes to your medications before leaving. Activity:: Activity as Tolerated Diet:: As Tolerated Discharge Orders Discharge Orders: Discharge Order (Routine); Ordered 10/03/23 Ordered By: Michael Pyle DS: Diagnosis Discharge Diagnosis (1) Chronic diarrhea: Status: Acute Asessment and Plan: No obvious source of diarrhea on the endoscopy. Follow-up on biopsy results
--- NOTE | 2023-10-03 17:07 | W.COLOREPORT ---
Date of service: 10/04/23 Time of Service: 09:06 Colonoscopy Report Date of procedure: 10/04/23 Pre-op diagnosis general: GERD and diarrhea Post-op diagnosis procedure note: other (GERD, diarrhea, diverticulosis, colon polyp) Procedure: EGD with biopsies and colonoscopy with biopsies and polypectomy Surgeon: Michael Pyle Anesthesia Type: General:No Airway Estimated blood loss (mL): 15 Pathology: other (Random biopsies of duodenum, gastric antrum and body, GE junction. Biopsies of terminal ileum, random colon biopsies, colon polyp at 15 cm) Complications: None Disposition: same day Indications: Erum is a 58-year-old woman who has been experiencing unexplained diarrhea and gastroesophageal reflux. Prep: Miralax/Dulcolax Procedure Start Time: 08:23 Procedure End Time: 08:53 Retraction Time: 14 Findings: Mild irregularity of the Z-line at 36 cm from the incisors. Otherwise normal-appearing esophagus, stomach, and duodenum. 0.25 cm colon polyp at 15 cm from the anus. Sigmoid diverticulosis. Otherwise normal-appearing colonoscopy Procedure Description: After the initiation of anesthesia, and with the assistance of a bite block, I advanced a standard gastroscope through the mouth past the hypopharynx and into the esophagus.? Under the direct vision of the scope, I advanced down the esophagus into the stomach.? Once I entered the stomach, I performed a brief inspection, followed by retroflexion towards the gastric cardia.? There is a grade 1 hiatal hernia.? After that, I gently advanced the scope around the incisura angularis and examined the pylorus.? This also appeared normal.? Next, I advanced the scope through the pylorus into the duodenum.? The mucosa was pink and healthy appearing.? There were no abnormalities.? I was able to visualize bile draining into the duodenum through the ampulla Vater. ?I perform random biopsies of the duodenum with cold forceps. There was minimal bleeding.? I brought the camera back into the stomach and carefully examined another time. It appeared normal. I did perform some random biopsies of the gastric antrum and body to rule out Helicobacter pylori as a source of her GERD..? I then gently desufflated some of the stomach, and withdrew the endoscope into the distal esophagus. There was very mild irregularity of the Z-line around 36 cm from the incisors. Irregularity was less than 2 cm in length. Narrowband imaging was used to assist with examination. I did perform four-quadrant biopsies of the GE junction. There was minimal bleeding here.. ?Finally, I withdrew the scope along the length of the esophagus taking great care to examine the entirety of the mucosa.? I did not appreciate any abnormalities. Next removed and ease into the left lateral decubitus position, I began by performing an external anorectal exam.? Perineum and skin were normal, as was the anal verge.? There was no evidence of external hemorrhoids.? Next, I performed a digital rectal exam.? I did not appreciate any abnormal findings.? Next, I advanced a colonoscope into the rectal vault.? I performed retroflexion.? This was normal.? Using insufflation, I then advanced the colonoscope beyond the rectal folds and into the sigmoid colon before advancing towards the cecum.? There was sigmoid diverticulosis..? The scope was noted to be in the cecum by identification of the ileocecal valve and appendiceal orifice.? I cannulated the terminal ileum. It appeared normal, without any signs of inflammation. I did perform cold forcep biopsies of the terminal ileum. I then began withdrawing the colonoscope using repeated irrigation as necessary for full evaluation of the colonic mucosa. In order to help diagnose the source of her diarrhea, I performed cold forceps random biopsies all along the length of the colon. Once the scope was withdrawn to the level of the rectum, great care was taken to examine portions of the rectal folds.? Around 15 cm from the anal verge was a 0.25 cm slightly pedunculated polyp. This was removed with cold forceps without any issues. Finally, the scope was withdrawn and the patient was brought to the same-day surgery recovery unit as the anesthetic wore off. ?The findings and instructions were shared with the patient prior to discharge. [place]ford Bowel Prep Frankford Bowel Prep Right Colon: 3 Left Colon: 3 Transverse Colon: 3 Total Score: 9
[2023-10-04 06:56] VITALS: BP 123/86; PULSE 60; RESP 16; TEMP 36.5; O2SAT 99
[2023-10-04] MEDS: Lactated Ringers 1,000 ML 80 ML IV (07:14)
--- NOTE | 2023-10-04 08:01 | W.ANESPRE ---
General Info Date of Service Date Performed: 10/04/23 Height: 5 ft 3 in Weight: 77 kg Body Mass Index (BMI): 30.0 Surgical Procedure: Operation Date: 10/04/23 08:20 Proposed Procedure Side Surgeon p Colonoscopy/Gastroscopy Michael Pyle MD Meds Allergies and Home Medications Allergies Allergy/AdvReac Type Severity Reaction Status Date / Time No Known Allergies Allergy Verified 10/03/23 10:42 Home Medication Medication Instructions Recorded calcium carbonate 600 mg-vitamin 1 ea PO BID 11/27/12 D3 20 mcg (800 unit) tablet (Caltrate with Vitamin D3) levothyroxine 112 mcg tablet 112 mcg PO DAILY #90 tab-caps 02/05/23 escitalopram oxalate 20 mg tablet 20 mg PO DAILY #90 tabs 07/24/23 lisinopril 10 mg tablet 10 mg PO DAILY #90 tabs 07/24/23 bismuth subsalicylate 525 mg 525 mg PO Q30-60M PRN 09/04/23 tablet (Pepto-Bismol Ultra) calcium carbonate 300 mg (750 mg) 300 mg PO BID PRN 09/04/23 chewable tablet (Tums) nystatin 100,000 unit/gram topical 1 applic topical BID PRN skin rash 09/20/23 cream #30 grams esomeprazole magnesium 20 mg 20 mg PO DAILY 10/03/23 capsule,delayed release Current Visit Medications: Current Medications Generic Name Dose Route Start Last Admin Trade Name Freq PRN Reason Stop Dose Admin Hyoscyamine Sulfate 0.125 mg 10/03/23 17:05 Hyoscyamine 0.125 Mg Sl/Oral/Chew SL 11/02/23 17:04 DIRECTED PRN Ringer's Solution 1,000 mls @ 80 mls/hr 10/04/23 06:00 10/04/23 07:14 IV 11/02/23 23:59 80 mls/hr INFUSION CARMEN Administration IV Miscellaneous Supplies 1 each 10/04/23 06:00 Iv Access IV 11/02/23 23:59 DIRECTED CARMEN Ondansetron HCl 4 mg 10/03/23 17:05 Ondansetron 4 Mg/2 Ml Vial IVP 11/02/23 17:04 Q4H PRN PRN Nausea / Vomiting Sodium Chloride 0 ml 10/04/23 06:00 Normal Saline Flush 10 Ml Syr IV 11/02/23 23:59 PRN PRN Sodium Chloride 0 ml 10/04/23 06:00 Normal Saline 10 Ml Vial IJ 11/02/23 23:59 DIRECTED PRN Sterile Water 0 ml 10/04/23 06:00 Water,Injection,Sterile 10 Ml Vial IJ 11/02/23 23:59 DIRECTED PRN PFSH Active Problems Active Problems: Problem Status Onset Code Chronic diarrhea K52.9 Family history of heart disease Z82.49 Chronic nausea R11.0 Left-sided chest wall pain R07.89 Arthralgia M25.50 Essential hypertension I10 Tear of lateral meniscus of right knee S83.281A Family history of malignant neoplasm of digestive organ Z80.0 Hypothyroidism (acquired) 11/27/12 E03.9 Depressive disorder F32.9 Anxiety F41.9 Right hamstring muscle strain S76.311A GERD (gastroesophageal reflux disease) K21.9 Trochanteric bursitis of both hips 02/14/16 M70.61, M70.62 Tendinitis involving left hip abductors 02/14/16 M76.892 Medical History Medical History Family history of anesthesia complication Pt states mother had to be brought back History of anesthesia problem Pt states difficulty breathing, N/V Depression Anxiety Hypothyroid Medical History Comments:: states she had trouble breathing after her tubal, she could not elaborate well on that. But has had surgery (torn meniscus repair) and stated she did fine wit that. States Mother had issues waking up from anesthesia Surgical History Surgical History History of tubal ligation [place] [facility] [place] Hysterectomy, Laproscopic Colonoscopy - IV Sedation (04/28/16) Cholecystectomy (~07/1998) Tobacco Smoking/Tobacco Use Status: Never Passive smoking exposure: Yes Second hand exposure: Yes Alcohol Alcohol Intake: current Alcohol intake frequency: a few times a month Alcohol type: beer Substance Use Substance use: Never Substance use type: does not use Counseling provided: none Vital Signs and Lab Results Vital Signs Most Recent Vital Signs in EMR: Most Recent Vital Signs Temp Pulse Resp BP Pulse Ox 36.5 C 60 16 123/86 99 10/04/23 06:56 10/04/23 06:56 10/04/23 06:56 10/04/23 06:56 10/04/23 06:56 Lab Results Blood Type / Crossmatch: No Data to Display Complete Blood Count: White Blood Count 6.48 10^3/uL (4.4-10.8) 09/04/23 14:18 Red Blood Count 4.63 10^6/uL (3.93-5.22) 09/04/23 14:18 Hemoglobin 13.0 g/dL (11.2-15.7) 09/04/23 14:18 Hematocrit 40.1 % (36.0-46.0) 09/04/23 14:18 Platelet Count 343 10^3/uL (130-400) 09/04/23 14:18 Complete Metabolic Panel: No Data to Display Liver Function Panel: No Data to Display Coagulation Panel: No Data to Display Cardiac Panel: No Data to Display Arterial Blood Gas: No Data to Display Venous Blood Gas: No Data to Display Pancreas Panel: No Data to Display Thyroid Panel: Thyroid Stimulating Hormone (TSH) 2.64 uIU/mL (0.36-3.74) 09/04/23 14:18 Infectious Disease: No Data to Display Blood Cultures: No Data to Display Toxicology Panel: No Data to Display Imaging and Studies Imaging and Studies Study information below may be from another EMR and interpreted by another provider. Please see original notes in EMR for more complete details. Stress Test Summary: DATE/TIME OF SERVICE: 09/10/23 ADMITTING PROVIDER: Miguel A Hidalgo M.D. : 1965 APPROVED REPORT Exam: Exercise Treadmill Patient Location: Out-Patient Room/Bed: Stress Nurse: Shanika Becerril RN Ordering Provider:NEO PACHECO, Contact Number: [phone] BMI: 30.81 Baseline Rhythm: Sinus Bradycardia Indications: family h/o heart disease, left sided chest pain, HTN Results: Negative test Anesthesia Assessment and Plan Anesthesia History Personal History: Other Family History: Other (delayed emergence) Exercise Tolerance Exercise Tolerance: Metabolic Equivalents>4 Pertinent Negatives Pertinent Negatives: No Symptoms of GERD, No Major Cardiovascular Symptoms or Complaints and No Major Pulmonary Symptoms or Complaints Cardiac & Pulmonary Exam Cardiac Exam: Normal S1/S2 Heart Sounds Pulmonary Exam: Clear Bilateral Breath Sounds Implantable Cardiac Device Does patient have a Pacemaker or an ICD?: No Airway Exam Known Difficult Airway: No Mallampati Class: 2 Mouth Opening: Normal (> 3cm) Thyromental Distance: Greater than 3 cm Neck Range of Motion: Full ROM Neck Circumference: Normal Teeth Condition: Normal Dentition ASA Classification ASA Score: ASA 2 Emergency Case?: No NPO Status NPO Status: NPO Clears >2 hours, Solids >8 hours Anesthesia Plan Resuscitation Status: Full Code Anesthesia Technique: General Anesthesia Airway Planned: Natural Airway Monitors Used: Standard Monitors
--- NOTE | 2023-10-04 08:26 | BOWEL_PTH ---
PATIENT: Erum Morton LOC: [facility] U#:[id number] AGE/SX: 58/F ROOM: RE10/04/[address]: Michael Pyle MD : 1965 BED: DIS: 10/04/2023 SPEC #: [id number] RECD: 10/04/23 12:40 STATUS: [facility] #: [id number] DEVONTE: 10/04/23 08:[address]: Michael Pyle DEPT: Surgical Specimen RECD BY: Sheila Nieto ENTERED: 10/04/23 12:44 SP TYPE: Bowel OTHR DR: Mak Chatman DNP Tissues: 1 - BIOPSY BOWEL 2 - STOMACH BIOPSY 3 - STOMACH BIOPSY 4 - ESOPHAGUS BIOPSY 5 - BIOPSY BOWEL 6 - BIOPSY BOWEL 7 - BIOPSY BOWEL Procedures: GROSS AND MICRO LEVEL 4 Comments: [id number]
[2023-10-04 08:55] VITALS: BP 110/74; PULSE 58; RESP 16; TEMP 36.4; O2SAT 98
--- NOTE | 2023-10-04 09:16 | W.ANESPOSTOP ---
Postoperative Evaluation Date, Time and Location Date Performed: 10/04/23 Time Performed: 09:16 Patient Location: Day Surgery Unit Vital Signs Most Recent Imported Vital Signs: Most Recent Vital Signs Temp Pulse Resp BP Pulse Ox 36.4 C L 58 L 16 110/74 98 10/04/23 08:55 10/04/23 08:55 10/04/23 08:55 10/04/23 08:55 10/04/23 08:55 Pain Score Most Recent Pain Score: Most Recent Pain Score Pain Level 0 10/04/23 08:55 Assessment Mental Status: Awake (Alert & Oriented to Patient Baseline) Airway and Respiratory Function: Patent airway with normal (patient baseline) respiratory exam Cardiovascular Function: Hemodynamically Stable Hydration Status: Adequately Hydrated Nausea & Vomiting: No Nausea or Vomiting Pain: Pt. Denies Any Pain Peripheral Nerve Block: Patient did not receive a nerve block Postoperative Comments:: Advised from nursing about patient stating metal taste in mouth. No other concerns. Pt. doing well.
[2023-10-04 09:31] VITALS: BP 126/73; PULSE 52; RESP 16; TEMP 36.6; O2SAT 98
== END 2023-10-04 10:10 | disposition home or self-care (01) ==
PROVIDERS: PCP Nurse Practitioner Family; Visit Provider Surgery
PROC: (CPT 45380; principal; 2023-10-04 08:15)
DX: K52.9 Noninfective gastroenteritis and colitis, unspecified (principal); Z80.0 Family history of malignant neoplasm of digestive organs; K21.9 Gastro-esophageal reflux disease without esophagitis; K63.5 Polyp of colon; K29.70 Gastritis, unspecified, without bleeding
CPT/HCPCS: 45380; 43239; 88305; J2001; J2704

== ENCOUNTER 2024-05-08 02:30 | Outpatient (CLI) | payer OTHER, SELFPAY ==
--- NOTE | 2024-05-08 14:12 | DI.RAD_ITS ---
Exam(s) XR SHOULDER LT COMPLETE 2+V EXAM: XR SHOULDER LT COMPLETE 2+V CLINICAL HISTORY: LT SHOULDER PAIN,M25.512. TECHNIQUE: 2D digital imaging was performed. COMPARISON: No exams were available for comparison FINDINGS: Five views. No evidence of acute fracture or dislocation or abnormal soft tissue calcifications. The subacromial space is not diminished. AC joint appears unremarkable. However, there are degenerative changes in the glenohumeral joint with joint space narrowing and small osteophytes on the inferior articular flores rface of the humeral head and osseous glenoid. There is also a degenerative subarticular cyst in the inferior half of the osseous glenoid which measures approximately 1 cm size. No ominous osseous les ions. Ipsilateral clavicle unremarkable. IMPRESSION: Osteoarthritic degenerative changes in the left glenohumeral joint as described above. AC joint appe ars unremarkable. Subacromial space appears unremarkable. DATA REPOSITORY: RADIATION DOSE DELIVERED:
== END 2024-05-08 02:50 ==
LOC: DI 02:30
PROVIDERS: PCP Nurse Practitioner Family; Visit Provider Nurse Practitioner Family
DX: M25.512 Pain in left shoulder (principal)
CPT/HCPCS: 73030

== ENCOUNTER 2024-07-18 00:30 | Outpatient (CLI) | payer OTHER, SELFPAY ==
--- NOTE | 2024-07-18 07:00 | DI.MRI_ITS ---
Exam(s) MR UPPER JOINT LT WO EXAM: MR UPPER JOINT LT WO CLINICAL HISTORY: ? RTC TEAR,lt shoulder pain,m25.512. TECHNIQUE: Multiplanar multisequence MRI was performed. COMPARISON: PLAIN FILMS 2023 FINDINGS: Exam is mildly limited by motion. BONES: There is no fracture or contusion pattern. Large degenerative cysts noted in the inferior gl enoid. JOINTS:The acromioclavicular joint shows mild inferior spurring and a small amount of fluid.. The glenohumeral joint shows cartilage thinning of the glenoid extending down to bone. TENDONS: Supraspinatus: Thickening and intermediate signal with anterior, distal focal area of high signal con sistent with a partial tear. Infraspinatus: Unremarkable. Subscapularis: Unremarkable. Teres [place]: Unremarkable. Biceps and [place]: Unremarkable. MUSCLES: Unremarkable. GLENOID LABRUM: Unremarkable on this noncontrast examination. SOFT TISSUES: Unremarkable. BURSAE: Subacromial and subdeltoid bursae shows a small amount of fluid.. IMPRESSION: Supraspinatus tendinosis with partial tear anteriorly. Degenerative changes small joint with large degenerative subchondral cyst at the glenoid. DATA REPOSITORY:
== END 2024-07-18 00:50 ==
LOC: DI 00:30
PROVIDERS: PCP Nurse Practitioner Family; Visit Provider Student in an Organized Health Care Education/Training Program
DX: M25.512 Pain in left shoulder (principal)
CPT/HCPCS: 73221

== ENCOUNTER 2024-07-25 16:32 | Outpatient (REF) | payer OTHER, SELFPAY ==
[2024-07-25 21:14] LABS: Abs Immature Grans 0.04 10^3/uL (0.0-0.06); Absolute Basophil Count 0.04 10^3/uL (0.0-0.2); Absolute Eosinophil Count 0.14 10^3/uL (0.0-0.7); Absolute Lymphocyte Count 1.99 10^3/uL (1.2-3.4); Absolute Monocyte Count 0.65 10^3/uL (0.1-0.8); Absolute Neutrophil Count 5.93 10^3/uL (1.2-6.7); Basophils % 0.5 %; Eosinophils % 1.6 %; HCT 42.2 % (36.0-46.0); HGB 13.5 g/dL (11.2-15.7); Immature Grans % 0.5 %; Lymphocytes % 22.6 %; MCH 28.4 pg (27.0-33.0); MCV 89 fL (80-95); Monocytes % 7.4 %; Neutrophils % 67.4 %; Platelet Count 379 10^3/uL (130-400); RBC 4.75 10^6/uL (3.93-5.22); RDW 14.4 % (11.7-14.6); WBC 8.79 10^3/uL (4.4-10.8)
[2024-07-25 21:38] LABS: ALT 27 U/L (14-59); AST 26 U/L (15-37); Albumin 3.8 g/dL (3.4-5.0); Alkaline Phosphatase 82 U/L (46-116); Anion Gap 9.9 mmol/L (3-11); BUN 13 mg/dL (7-18); Bilirubin, Total 0.31 mg/dL (0.2-1.0); CO2 29.1 mmol/L (21.0-32.0); CREATININE 0.8 mg/dL (0.55-1.02); Calcium 9.6 mg/dL (8.5-10.1); Calculated LDL 134 mg/dL (<100); Chloride 101 mmol/L (98-107); Cholesterol 234 mg/dL (<200); Estimated GFR 84.82 (mL/min/1.73m2); Glucose 90 mg/dL (74-106); HDL Cholesterol 73 mg/dL (40-60); Potassium 4.2 mmol/L (3.5-5.1); Sodium 140 mmol/L (136-145); TSH 4.09 uIU/mL (0.36-3.74); Triglyceride 136 mg/dL (<150)
[2024-07-28 10:11] LABS: HIV-1/2 Ag & Ab Screen Negative (Negative)
[2024-07-28 10:57] LABS: Hepatitis C Ab w Rflx HCV PCR Negative (Negative)
== END 2024-07-25 16:33 | disposition home or self-care (01) ==
LOC: LBN 16:32
PROVIDERS: PCP Nurse Practitioner Family; Visit Provider Nurse Practitioner Family
DX: E03.9 Hypothyroidism, unspecified (principal); R53.83 Other fatigue; Z11.4 Encounter for screening for human immunodeficiency virus [HIV]; Z13.220 Encounter for screening for lipoid disorders; Z11.59 Encounter for screening for other viral diseases
CPT/HCPCS: 80053; 80061; 86803; 87389; 84443; 85025

== ENCOUNTER 2024-09-05 00:04 | Outpatient (CLI) | payer OTHER, SELFPAY ==
--- NOTE | 2024-09-05 15:01 | DI.MAMMO_ITS ---
Exam(s) MAMMO SCREENING EXAM: MAMMO SCREENING CLINICAL HISTORY: screening,z12.39. TECHNIQUE: Bilateral full field digital CC and MLO mammographic images were obtained with 3D tomosyn thesis and utilizing computer aided detection (CAD). COMPARISON: Prior mammograms were reviewed. FINDINGS: There has been no significant change in the appearance and distribution of the fibroglandular tissue. There are no new spiculated masses nor malignant appearing microcalcification groups. There is no significant architectural distortion nor skin thickening-retraction. IMPRESSION: No radiographic evidence of malignancy. BI-RADS Category 1 - Negative Breast Density - Category A - Almost entirely fatty Breast density Category C or D implies that the patient has dense breast tissue. Dense breast tissue can make it harder to find cancer on a mammogram. Dense breast tissue is also associated with an incr eased risk of breast cancer. This information about the result of the mammogram report was provided to the patient to raise their awareness. Use this report when you speak with the patient about their risks for breast cancer, which includes their family history. At that time, you may recommend additional screening tests (Ultrasoun d or MRI) as these tests may add significant information. A negative radiographic report should not delay biopsy if a dominant or clinically suspicious mass is present. Up to ten percent of cancers are not identified on mammography. A negative report may reinforce clinical impression. Adenosis and dense breasts may obscure an underlying neoplasm. False positive reports average 6 to 10%. Patient will receive a letter notifying them of these results.
== END 2024-09-05 00:24 ==
LOC: DI 00:04
PROVIDERS: PCP Nurse Practitioner Family; Visit Provider Nurse Practitioner Family
DX: Z12.31 Encounter for screening mammogram for malignant neoplasm of breast (principal); R92.313 Mammographic fatty tissue density, bilateral breasts
CPT/HCPCS: 77063; 77067

== ENCOUNTER 2025-01-14 15:14 | Outpatient (CLI) | payer OTHER, SELFPAY ==
--- NOTE | 2025-01-14 14:45 | DI.RAD_ITS ---
Exam(s) XR HIP LT COMPLETE AP PELVIS EXAM: XR HIP LT COMPLETE AP PELVIS CLINICAL HISTORY: worsening pain, lt hip pain, M25.552. TECHNIQUE: 2D digital imaging was performed. COMPARISON: No exams were available for comparison FINDINGS: Two views No evidence of pelvic nor hip fracture. No hip joint space narrowing but there are degenerative suba rticular cysts in the superior aspect of the left hip acetabulum noted indicating some degenerative c hange this spite preserved disc space. There are no ipsilateral femoral head osteophytes. Bone dens ity is normal. No osseous lesions. IMPRESSION: Left hip findings as above. DATA REPOSITORY: RADIATION DOSE DELIVERED:
--- NOTE | 2025-01-14 14:45 | DI.RAD_ITS ---
Exam(s) XR KNEE LT 3V AP,LAT,CODY EXAM: XR KNEE LT 3V AP,LAT,CODY CLINICAL HISTORY: worsening pain, lt knee pain, M25.562. TECHNIQUE: 2D digital imaging was performed. COMPARISON: No exams were available for comparison FINDINGS: 3 views No evidence of fracture but there is a moderate-large size joint effusion. There is significant joint space narrowing of the lateral compartment and marginal osteophytes. No s ignificant narrowing of the medial compartment. Moderate degenerative changes in the patellofemoral compartment. Bone density normal. No osseous lesions. IMPRESSION: Degenerative changes which are most prominent in the lateral compartment. There is an element of mil d valgus deformity. There is a moderate size knee joint effusion also evident. DATA REPOSITORY: RADIATION DOSE DELIVERED:
== END 2025-01-14 15:34 ==
LOC: DI 15:15
PROVIDERS: PCP Nurse Practitioner Family; Visit Provider Nurse Practitioner Family
DX: M25.562 Pain in left knee (principal); M25.552 Pain in left hip
CPT/HCPCS: 73562; 73502

== ENCOUNTER 2025-01-16 02:11 | Outpatient (CLI) | payer OTHER, SELFPAY ==
[2025-01-16 15:22] LABS: ESR 31 mm/hr (0-30)
[2025-01-16 15:44] LABS: Anion Gap 7.3 mmol/L (3-11); BUN 19 mg/dL (7-18); CO2 27.7 mmol/L (21.0-32.0); CREATININE 0.7 mg/dL (0.55-1.02); Calcium 9.7 mg/dL (8.5-10.1); Chloride 103 mmol/L (98-107); Estimated GFR 99.57 (mL/min/1.73m2); Glucose 107 mg/dL (74-106); Potassium 4.3 mmol/L (3.5-5.1); Sodium 138 mmol/L (136-145)
[2025-01-16 16:04] LABS: C-Reactive Protein < 0.50 mg/dL (<or=0.5)
[2025-01-16 16:16] LABS: D-Dimer 1244 ng/mlFEU (<500)
== END 2025-01-16 02:12 | disposition home or self-care (01) ==
PROVIDERS: PCP Nurse Practitioner Family; Visit Provider Nurse Practitioner Family
DX: M25.552 Pain in left hip (principal); M25.562 Pain in left knee
CPT/HCPCS: 36415; 80048; 85652; 85379; 86140

== ENCOUNTER 2025-08-25 15:43 | Outpatient (CLI) | payer OTHER, SELFPAY ==
--- NOTE | 2025-08-25 15:30 | RT.EKG_ITS ---
APPROVED REPORT Exam: Resting ECG Reason for Exam: Preop evaluation Patient Location: O HR:62 bpm ECG Measurements Heart Rate 62 AXIS CA 138 P 63 QRSd 87 QRS 1 QT 390 T 4 QTc 396 Conclusion Sinus rhythm...normal P axis, V-rate 50- 99 Normal Electrocardiogram
== END 2025-08-25 15:44 | disposition home or self-care (01) ==
LOC: DI.CM 15:44
PROVIDERS: PCP Nurse Practitioner Family; Visit Provider Nurse Practitioner Family
DX: Z01.818 Encounter for other preprocedural examination (principal)
CPT/HCPCS: 93010